=== PATIENT | female | born 1950 | race Caucasian/White ===

== ENCOUNTER 2022-09-12 10:37 | Day surgery (SDC) | payer MEDICARE ==
[~2022-09-12] VITALS: Ht 165.1 cm; Wt 93.2 kg
[2022-09-12] VITALS (7 sets, daily range): BP systolic 113–128; BP diastolic 47–75
[2022-09-12] MEDS ORDERED: ASPI-1265 PO (11:03)
[2022-09-12] MEDS ORDERED: HYDR-3686 PO (11:03)
[2022-09-12] MEDS ORDERED: BUPR200T27 PO (11:03)
[2022-09-12] MEDS ORDERED: NITR0.4T48 SL (11:03)
[2022-09-12] MEDS ORDERED: ATOR40TA72 PO (11:03)
[2022-09-12] MEDS ORDERED: diphenhydrAMINE 25mg capsule PO PRN (11:05)
[2022-09-12] MEDS ORDERED: normal saline 1,000 ML IV SCH (11:05)
[2022-09-12] MEDS ORDERED: LORazepam 0.5 MG tablet PO PRN (11:05)
[2022-09-12] MEDS ORDERED: verapamil 2.5 mg/ml inj IV ONE (12:07)
[2022-09-12] MEDS ORDERED: LIDOcaine 1% (10mg/ml) 2ml vial ONE (12:07)
[2022-09-12] MEDS ORDERED: nitroGLYCERIN-Tridil 50MG/D5W 250 ML IV ONE (12:08)
[2022-09-12] MEDS ORDERED: iohexol 350MG/ML 100ml bottle IV ONE ×2 (12:08→13:50)
[2022-09-12] MEDS ORDERED: heparin 1,000unit/ml 10ml vial 10 ML ONE (12:08)
[2022-09-12] MEDS ORDERED: midazolam 1 mg/ML 2ml injection ONE ×2 (12:08→13:37)
[2022-09-12] MEDS ORDERED: fentaNYL/PF 50MCG/1 ML 2ML syringe ONE (12:09)
[2022-09-12] MEDS ORDERED: proCHLORperazine 10 MG/2 ml inj ONE (13:03)
[2022-09-12] MEDS ORDERED: clopidogrel 300mg tablet ONE (13:44)
[2022-09-12] MEDS ORDERED: aspirin 81mg tab.chew ONE ×2 (13:44→13:47)
[2022-09-12] MEDS ORDERED: iohexol 350 MG/ML 50ML vial IV ONE (14:03)
== END 2022-09-12 17:00 | disposition home or self-care (01) ==
LOC: SSTAY O 10:37
PROVIDERS: ATTEND Student in an Organized Health Care Education/Training Program
DX: R07.89 Other chest pain (principal); I25.10 Atherosclerotic heart disease of native coronary artery without angina pectoris; I45.10 Unspecified right bundle-branch block; I10 Essential (primary) hypertension; E78.5 Hyperlipidemia, unspecified; F41.9 Anxiety disorder, unspecified; Z79.82 Long term (current) use of aspirin; Z79.899 Other long term (current) drug therapy
CPT/HCPCS: 93005; 93458; 99152; 99153; C1725; C1751; C1769; C1874; C1894; C9600; J0780; J1644; J2250; J3010; J3490; J7030; Q0163; Q9967; A6258; A6449; C9601